=== PATIENT | male | born 1990 | race Two or more races ===

== ENCOUNTER 2020-12-06 07:08 | Emergency (ER) | payer BC, OTHER ==
[~2020-12-06] VITALS: Ht 175.3 cm; Wt 118.0 kg
[2020-12-06] MEDS ORDERED: methylPREDNISolone SOD SUCC PF 125 MG/2 ML VIAL. IV ONE (07:45)
--- NOTE | 2020-12-06 08:03 | RAD ---
INDICATION: Reason: soa, cough / Spl. Instructions: / History: COMPARISON: None. FINDINGS: Single view of chest obtained. Hypoexpanded examination. Mild interstitial prominence. Patchy opacity most prominent at left lung ba se. Cardiac silhouette unremarkable. IMPRESSION: * Patchy opacity at left lung base which could be from atelectasis or infiltrate. Electronically signed by: Michael Sherwood MD (12/06/2020 8:01 AM) [id number]
--- NOTE | 2020-12-06 08:16 | PHYS DOC ---
Past Medical History Additional Past Medical Histor: Aspirin related respiratory disease, Past Surgical History: Other Additional Past Surgical Histo: Bronchial thermoplasty General Adult EDM: Chief Complaint: DYSPNEA/RESPIRATORY DISTRESS HPI: HPI: Patient is a 30 year old male who present to ER for evaluation of cough and trouble breathing since yesterday. Patient has history of asthma, he used inhaler at home but did not get better so he called EMS to take him here for evaluation. EMS gave him 2 DuoNeb treatment on route. Patient said he was fully vaccinated for COVID-19. Patient denies any chest pain, no abdominal pain, no nausea vomiting. Review of Systems: Review of Systems: Constitutional: Denies fever or chills. [] Eyes: Denies change in visual acuity. [] HENT: Denies nasal congestion or sore throat. [] Respiratory: Positive for cough and trouble breathing Cardiovascular: Denies chest pain or edema. [] GI: Denies abdominal pain, nausea, vomiting, bloody stools or diarrhea. [] : Denies dysuria. [] Musculoskeletal: Denies back pain or joint pain. [] Integument: Denies rash. [] Neurologic: Denies headache, focal weakness or sensory changes. [] Endocrine: Denies polyuria or polydipsia. [] Lymphatic: Denies swollen glands. [] Psychiatric: Denies depression or anxiety. [] Heart Score: C/O Chest Pain: N/A Risk Factors: Risk Factors: DM, Current or recent (<one month) smoker, HTN, HLP, family history of CAD, obesity. Risk Scores: Score 0 - 3: 2.5% MACE over next 6 weeks - Discharge Home Score 4 - 6: 20.3% MACE over next 6 weeks - Admit for Clinical Observation Score 7 - 10: 72.7% MACE over next 6 weeks - Early Invasive Strategies Current Medications: Current Medications Medications (Trade) Dose Ordered Sig/Anisha Start Time Stop Time Status Last Admin Dose Admin Methylprednisolone Sodium Succinate (SOLU-Medrol 125MG VIAL) 125 mg 1X ONCE 12/06/20 07:45 12/06/20 07:46 DC Allergies: Allergies: Allergies Coded Allergies Type Severity Reaction Last Updated Verified NSAIDS (Non-Steroidal Anti-Inflamma Allergy Intermediate 12/06/20 Yes Penicillins Allergy Intermediate 12/06/20 Yes amoxicillin Allergy Intermediate 12/06/20 Yes aspirin Allergy Intermediate 12/06/20 Yes Physical Exam: PE: Constitutional: Well developed, well nourished, no acute distress, non-toxic appearance. [] HENT: Normocephalic, atraumatic, bilateral external ears normal, oropharynx moist, no oral exudates, nose normal. [] Eyes: PERRLA, EOMI, conjunctiva normal, no discharge. [] Neck: Normal range of motion, no tenderness, supple, no stridor. [] Cardiovascular:Heart rate regular rhythm, no murmur [] Lungs & Thorax: Bilateral breath sounds with wheezing to auscultation [] Abdomen: Bowel sounds normal, soft, no tenderness, no masses, no pulsatile masses. [] Skin: Warm, dry, no erythema, no rash. [] Back: No tenderness, no CVA tenderness. [] Extremities: No tenderness, no cyanosis, no clubbing, ROM intact, no edema. [] Neurologic: Alert and oriented X 3, normal motor function, normal sensory function, no focal deficits noted. [] Psychologic: Affect normal, judgement normal, mood normal. [] Current Patient Data: Vital Signs: Vital Signs Date Time Temp Pulse Resp B/P (MAP) Pulse Ox O2 Delivery O2 Flow Rate FiO2 12/06/20 07:10 97.8 88 22 146/97 97 Room Air 97.8 EKG: EKG: [] Radiology/Procedures: Radiology/Procedures: [][facility] [address] [place] [address] IMAGING REPORT Signed PATIENT: CHAS DAVIS ACCOUNT: [id number] : 1990 LOCATION: ER AGE: 30 SEX: M EXAM STATUS: REG ER ORD. PHYSICIAN: BRITNI MARTINEZ DO REASON: soa, cough PROCEDURE: CHEST AP ONLY INDICATION: Reason: soa, cough / Spl. Instructions: / History: COMPARISON: None. FINDINGS: Single view of chest obtained. Hypoexpanded examination. Mild interstitial prominence. Patchy opacity most prominent at left lung base. Cardiac silhouette unremarkable. IMPRESSION: * Patchy opacity at left lung base which could be from atelectasis or infiltrate. Electronically signed by: Anand Sherwood MD (12/06/2020 8:01 AM) [id number] DICTATED and SIGNED BY: ANAND SHERWOOD MD DATE: 12/06/20 [id number] 0 Course & Med Decision Making: Course & Med Decision Making Pertinent Labs and Imaging studies reviewed. (See chart for details) Patient is a 30-year-old male who present to ER due to cough and trouble breathing. Patient was given DuoNeb treatment in ER, he was tested negative for Covid, chest x-ray showed left lower lobe infiltration. Patient was discharged home with antibiotic, prednisone. Patient said he still have the inhaler at home. Dragon Disclaimer: Evento Disclaimer: This electronic medical record was generated, in whole or in part, using a voice recognition dictation system. Departure Departure Impression: Primary Impression: CAP (community acquired pneumonia) Additional Impression: Asthma exacerbation Disposition: HOME / SELF CARE / HOMELESS Condition: IMPROVED Referrals: UNKNOWN PCP NAME (PCP) Please follow up with your family physician this week. Patient Instructions: Asthma, Adult, Pneumonia, Adult Additional Instructions: Thank you for visiting our Emergency Department. We appreciate you trusting us with your care. If any additional problems come up don't hesitate to return to visit us. Please follow up with your primary care provider so they can plan additional care if needed and know about the problem that you had. If symptoms worsen come back to the Emergency Department. Any concerning symptoms that start such as chest pain, shortness of air, weakness or numbness on one side of the body, running high fevers or any other concerning symptoms return to the ER. Scripts Azithromycin (ZITHROMAX) 250 Mg Tablet 1 PKG PO UD for 5 Days, #6 TAB Prov: BRITNI MARTINEZ DO 12/06/20 Prednisone (PREDNISONE) 20 Mg Tablet 1 TAB PO DAILY for 10 Days, #10 TAB Prov: BRITNI MARTINEZ DO 12/06/20 BRITNI MARTINEZ DO Dec 06, 2020 08:16
[2020-12-06] MEDS ORDERED: ONDANSETRON PF 4 MG/2 ML VIAL. IVP ONE (08:30)
[2020-12-06 08:32] LABS: BASO # 0.1 x10^3/uL (0.0-0.2); BASO % 1 % (0-3); EOS # 0.6 x10^3/uL (0.0-0.7); EOS % 8 % (0-3); HEMATOCRIT 46.8 % (39.0-53.0); HEMOGLOBIN 16.1 g/dL (13.0-17.5); LYMPH # 3.1 x10^3/uL (1.0-4.8); LYMPH % 38 % (24-48); MEAN CORPUSCULAR HEMOGLOBIN 28 pg (25-35); MEAN CORPUSCULAR HGB CONC 34 g/dL (31-37); MEAN CORPUSCULAR VOLUME 82 fL (79-100); MONO # 0.6 x10^3/uL (0.0-1.1); MONO % 8 % (0-9); NEUT # 3.6 x10^3/uL (1.8-7.7); NEUT % 46 % (31-73); PLATELET COUNT 285 x10^3/uL (140-400); RED BLOOD COUNT 5.69 x10^6/uL (4.30-5.70); RED CELL DISTRIBUTION WIDTH 13.7 % (11.5-14.5)
[2020-12-06 08:45] LABS: CALCIUM 8.7 mg/dL (8.5-10.1); GFR 87.2; POTASSIUM 3.6 mmol/L (3.5-5.1)
[2020-12-06 08:48] LABS: ALBUMIN 3.5 g/dL (3.4-5.0); ALBUMIN/GLOBULIN RATIO 1.1 (1.0-1.7); TOTAL BILIRUBIN 0.6 mg/dL (0.2-1.0); TOTAL PROTEIN 6.8 g/dL (6.4-8.2)
[2020-12-06] MEDS ORDERED: IPRATRPIUM/ALBUTEROL 0.5/2.5MG 3 ML NEBU. NEB ONE ×2 (09:45→10:45)
[2020-12-06 09:52] VITALS: BP 126/68
[2020-12-06] MEDS ORDERED: PRED20TA PO (11:33)
[2020-12-06] MEDS ORDERED: AZIT250T PO (11:33)
== END 2020-12-06 12:06 | disposition home or self-care (01) ==
LOC: ER 07:08
DX: J18.9 Pneumonia, unspecified organism (principal); Z20.822 Contact with and (suspected) exposure to COVID-19; J45.901 Unspecified asthma with (acute) exacerbation; Z88.0 Allergy status to penicillin; Z88.1 Allergy status to other antibiotic agents; Z88.6 Allergy status to analgesic agent; Z88.8 Allergy status to other drugs, medicaments and biological substances
CPT/HCPCS: 36415; 71045; 80053; 83735; 85025; 87426; 94640; 96374; 96375; 99285; J2405; J2930; U0003; U0005